=== PATIENT | male | born 1945 | race Caucasian/White ===

== ENCOUNTER 2018-03-21 18:00 | Emergency (ER) | payer MEDICARE ==
[2018-03-21] MEDS ORDERED: EPINEPHrine 1:10,000 1 MG/10 ML Syringe ONE ×4 (18:25)
--- NOTE | 2018-03-21 19:02 | EDM.PDOC ---
ED HPI GENERAL MEDICAL PROBLEM - General Chief Complaint: CPR in Progress Stated Complaint: CPR IN PROGRESS Time Seen by Provider: 03/21/18 18:00 Source of Information: Reports: EMS History Limitations: Reports: Other - History of Present Illness INITIAL COMMENTS - FREE TEXT/NARRATIVE: This patient arrived to the ED with CPR in progress via [facility]. Patient and family members [place] and were [place] the car when he collapsed and became unresponsive. Bystanders started CPR and call 911. Brother of patient states he had no know history of cardiac disease but did have one episode of feeling light headed this past summer while boating. It is not known whether he was on medications or has any allergies. 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 ED ROS GENERAL - Review of Systems Review Of Systems: Unable To Obtain ED EXAM, CPR - Physical Exam Exam: See Below Limited By: Other (CPR in process) Eye Exam: Bilateral Eye: Abnormal Pupil Ears: Normal External Exam Nose: Normal Inspection Throat/Mouth: Normal Inspection Head: Atraumatic, Normocephalic Respiratory Chest: Other (bag/mask ventilation) GI/Abdominal Exam: Other (no bowel sounds) 0: Right Carotid, Left Carotid Extremities: Normal Inspection, Other (adhesive dressing to inner aspect right ankle) ED CPR PROCEDURES - Endotracheal Intubation Time of Intubation: 18:10 ET Intubation Indication: Cardiac Arrest Preparation: Suction Pre-Oxygenation: Assisted with BVM, 100% FiO2 Placement: Nasotracheal, Cuffed Cords Visualized: Yes ETT Size In mm: 7.5 Number of Attempts: 2 Confirmed By: CO2 Indicator, Bilateral Breath Sounds Tube Secured By: By Provider - Additional/Other Procedure(s) Other (Free Text) Procedure(s): IO placed left tibia EKG INTERPRETATION EKG Date: 03/21/18 Time: 18:00 (continuous monitoring) Rhythm: Other (PEA) Course - Re-Assessments/Exams Free Text/Narrative Re-Assessment/Exam: 03/21/18 19:06 This patient presented to the ED via EMS with CPR in progress. He had a witnessed arrest with bystander CPR at approximately 1730. EMS arrived and switched CPR to [facility]. He was ventilated with bag-mask ventilation and received one shock en route to the ED. The patient presented at approximately 1800. He was intubated and an IO was placed. Epi doses with high quality CPR continued for an additional 30 minutes. Pulse rechecks done every 2 minutes revealed PEA with no palpable carotid pulse and definitive airway. CPR was discontinued at 1828. Family aware. Departure - Departure Time of Disposition: 18:30 Disposition: 20 Preliminary Cause of *Q: Cardiac Arrest Clinical Impression: Cardiac arrest - Discharge Information *PRESCRIPTION DRUG MONITORING PROGRAM REVIEWED*: Not Applicable *COPY OF PRESCRIPTION DRUG MONITORING REPORT IN PATIENT ALLYSSA: Not Applicable Forms: ED Department Discharge
[2018-03-23] MEDS ORDERED: EPINEPHrine 1:10,000 1 MG/10 ML Syringe IVPUSH PRN ×2 (07:44→07:53)
== END 2018-03-21 18:28 | disposition expired ==
LOC: LB.ED 18:00
DX: I46.9 Cardiac arrest, cause unspecified (principal)
CPT/HCPCS: 31500; 92950; 99285-25; A0425; A0429; J0171; J7030